=== PATIENT | female | born 1990 | race Caucasian/White ===

== ENCOUNTER 2017-03-26 11:38 | Emergency (ER) | payer BC ==
[~2017-03-26] VITALS: Ht 162.6 cm; Wt 131.5 kg
[~2017-03-26 11:38] MED LIST: AMOX500C2 PO; HYDR-3583 PO; IBP600T1 PO; KETO10TA PO; LORTAB; NITR-65 PO; ORPH100T PO; PREN1TAB39 PO; [UNRECOGNIZED DRUG - OTHER]
[2017-03-26] MEDS ORDERED: IBUPROFEN 800 MG (MOTRIN) TAB PO STA (12:31)
[2017-03-26] MEDS ORDERED: HYDROcodone/APAP 5 MG/325 MG (LORTAB) TAB PO STA (12:31)
[2017-03-26] MEDS ORDERED: TRAM50TA2 PO (12:37)
[2017-03-26] MEDS ORDERED: CEFD300C3 PO (12:37)
--- NOTE | 2017-03-26 12:39 | ED EENT ---
History of Present Illness General Chief Complaint: Oral/Throat Problems Stated Complaint: SORE THROAT/NAUSEA/TIRED Nursing Triage Note: PT STATES HAS SORETHROAT FOR A FEW DAYS. HAD FEVER LAST PM Source: patient Exam Limitations: no limitations History of Present Illness Time seen by provider: 12:20 Initial Comments 18-year-old female patient presents to the emergency department complains of sore throat beginning Monday or Monday. Reports worse today. Began having a fever last night. Does have a history of strep throat 2-3 times per year. Was told in high school she needed to have her tonsils removed, but states her parents didn't think they needed to be removed. Timing/Duration: abrupt, other (Monday or monday onset. ) Location: throat Prearrival Treatment: over the counter meds Presenting Symptoms/Injuries: sore throat, fever Modifying Factors: Worse With Other (pain worse with swallowing) Allergies and Home Medications Allergies Coded Allergies: No Known Drug Allergies (Unverified , 07/24/09) Home Medications Cefdinir 300 Mg Capsule, 300 MG PO BID, #20 Ref 0 Prescribed by: ANGELITA WISE on 03/26/17 1237 Ketorolac Tromethamine 10 Mg Tablet, 10 MG PO Q6H, #15 Prescribed by: JAIME MCKINNEY on 05/21/16 0607 Orphenadrine Citrate 100 Mg Tablet.er, 100 MG PO BID, #14 FOR MUSCLE SPASMS Prescribed by: JAIME MCKINNEY on 05/21/16 0607 Tramadol HCl 50 Mg Tablet, 50 MG PO Q4H PRN for pain, #14 Ref 0 Prescribed by: ANGELITA WISE on 03/26/17 1237 Review of Systems Constitutional: chills, fever, malaise Eyes: No Symptoms Reported Ears: Denies Pain Nose: denies congestion, denies pain Mouth: no symptoms reported Throat: see HPI, pain, swelling (tonsillar swelling), denies neck stiffness, hoarse, denies aphonia, denies muffled, painful swallowing, denies difficulty with fluids Respiratory: no symptoms reported Cardiovascular: no symptoms reported Gastrointestinal: No abdominal pain, No diarrhea, No nausea, No vomiting Musculoskeletal: no symptoms reported Skin: no symptoms reported Neurological: No Symptoms Reported All Other Systems Reviewed Negative Unless Noted: Yes (Negative excepted noted.) Past Dmgdbro-Terart-Gfoaea Hx Patient Social History Alcohol Use: Denies Use Recreational Drug Use: No Smoking Status: Former Smoker Type Used: Cigarettes Recent Foreign Travel: No Contact w/Someone Who Travel: No Recent Infectious Disease Expo: No Recent Hopitalizations: No Surgeries HX Surgeries: Yes Surgeries: Section, Gallbladder Respiratory Hx Respiratory Disorders: No Cardiovascular Hx Cardiac Disorders: No Neurological Hx Neurological Disorders: No Reproductive System Hx Reproductive Disorders: No Female Reproductive Disorders: Denies Genitourinary Hx Genitourinary Disorders: No Gastrointestinal Hx Gastrointestinal Disorders: No Musculoskeletal Hx Musculoskeletal Disorders: No Endocrine Hx Endocrine Disorders: No HEENT HX ENT Disorders: No Cancer Hx Cancer: No Psychosocial Hx Psychiatric Problems: No Integumentary HX Skin/Integumentary Disorder: No Blood Transfusions Hx Blood Disorders: No Reviewed Nursing Assessment Reviewed/Agree w Nursing PMH: Yes Family Medical History Significant Family History: No Pertinent Family Hx Physical Exam Vital Signs Vital Sign - Last 12Hours 03/26/17 11:55 Temp 100.5 Pulse 112 Resp 18 B/P (MAP) 119/79 Pulse Ox 99 General Appearance: WD/WN, no apparent distress Eyes: bilateral eye EOMI, bilateral eye PERRL, bilateral eye normal inspection Ears: bilateral ear TM normal, bilateral ear auricle normal, bilateral ear canal normal Nose: normal inspection Mouth/Throat: normal mouth inspection, No excessive drooling, tonsillar exudate , tonsillar swelling, No trismus, No uvula swelling, voice changes (hoarse voice.), other (pharyngeal erythema) Neck: full range of motion, supple, lymphadenopathy (R) (TTP), lymphadenopathy (L) (TTP) Cardiovascular: no murmur, tachycardia Respiratory: lungs clear, normal breath sounds, no respiratory distress Gastrointestinal: non tender, soft Neurologic/Psychiatric: alert, normal mood/affect, oriented x 3 Skin: normal color, warm/dry Progress/Results/Core Measures Results/Orders Lab Results Laboratory Tests Test 03/26/17 12:00 Range/Units Group A Streptococcus Screen POSITIVE H NEGATIVE My Orders Orders - ANGELITA WISE Rapid Strep A Screen (03/26/17 12:02) Hydrocodone/Apap 5/325 Tablet (Lortab 5 (03/26/17 12:31) Ibuprofen Tablet (Motrin Tablet) (03/26/17 12:31) Ceftriaxone Injection (Rocephin Injectio (03/26/17 12:45) Lidocaine 1% Injection (Xylocaine 1% Inj (03/26/17 12:45) Medications Given in ED Current Medications Medications Dose Ordered Sig/Benjamin Route Start Time Stop Time Status Last Admin Dose Admin Ceftriaxone Sodium 1,000 mg ONCE ONCE IM 03/26/17 12:45 03/26/17 12:46 DC 03/26/17 12:50 1,000 MG Lidocaine HCl 2.1 ml ONCE ONCE INJ 03/26/17 12:45 03/26/17 12:46 DC 03/26/17 12:50 2.1 ML Vital Signs/I&O Vital Sign - Last 12Hours 03/26/17 11:55 Temp 100.5 Pulse 112 Resp 18 B/P (MAP) 119/79 Pulse Ox 99 Blood Pressure Mean: 92 Departure Communication Progress Notes Patient seen and evaluated. Patient instructed to follow-up with Dr. Riggs as an outpatient for discussion of possible need of tonsillectomy. Patient to call Monday for appointment time. Impression Impression: Primary Impression: Streptococcal tonsillitis Disposition: HOME, SELF-CARE Condition: Improved Departure-Patient Inst. Decision time for Depature: 12:36 Referrals: JAYSON RIGGS MD [facility] (PCP/Family) Primary Care Physician Patient Instructions: Strep Throat (DC) Add. Discharge Instructions: All discharge instructions reviewed with patient and/or family. Voiced understanding. Medications as instructed. Tylenol Extra Strength 1000 mg by mouth every 6 hours as needed for pain or fever. Ibuprofen 800 mg by mouth every 8 hours as needed for pain or fever. Throat lozenges and sprays over-the- counter as needed. Warm saltwater gargles if needed. Soft diet. Drink plenty of fluids. Follow-up with your family practitioner for recheck if needed. Follow-up with Dr. Riggs as an outpatient for discussion of possible need for consult removal. Call Monday for appointment time. Return to the emergency department for worsened pain, fever, vomiting, difficulty swallowing, shortness of air, or any other concerns. Scripts Tramadol HCl (Tramadol HCl) 50 Mg Tablet 50 MG PO Q4H Y for pain, #14 TAB 0 Refills Prov: ANGELITA WISE 03/26/17 Cefdinir (Cefdinir) 300 Mg Capsule 300 MG PO BID, #20 CAP 0 Refills Prov: ANGELITA WISE 03/26/17 ANGELITA WISE Mar 26, 2017 12:39
[2017-03-26] MEDS ORDERED: LIDOCAINE 1% INJ 20 ML (XYLOCAINE) VIAL INJ ONE (12:45)
[2017-03-26] MEDS ORDERED: cefTRIAXone 1 GM (ROCEPHIN) VIAL IM ONE (12:45)
[2017-03-26 13:08] VITALS: BP 119/72
== END 2017-03-26 13:08 | disposition home or self-care (01) ==
LOC: EDUNIT# 11:38 → ER 11:39
DX: J03.00 Acute streptococcal tonsillitis, unspecified (principal); Z87.891 Personal history of nicotine dependence
CPT/HCPCS: 87430; 99282

== ENCOUNTER 2017-03-27 21:48 | Emergency (ER) | payer BC ==
[~2017-03-27] VITALS: Ht 162.6 cm; Wt 131.5 kg
[~2017-03-27 21:48] MED LIST changes: +CEFD300C3 PO; +TRAM50TA2 PO
--- NOTE | 2017-03-27 22:12 | ED EENT ---
History of Present Illness General Chief Complaint: Oral/Throat Problems Stated Complaint: STREP THROAT/TONCILLITIS Nursing Triage Note: SEEN IN ER YESTERDAY, POSTITIVE FOR STREP, GIVEN OMNICEF AND TRAMADOL AND TOLD TO COME BACK IF CONDITIONS WORSENED. PT STATES SHE IS HAVING TROUBLE BREATHING, ADDY WHEN LYING DOWN TO SLEEP, NOT FEELING ANY BETTER, GAGGING AND VOMITING MUCUS WHICH IS YELLOW/BROWNISH IN COLOR, THROAT STILL SORE, HARDER TO DRINK LIQUIDS TODAY THAN YESTERDAY. TRIED TO MAKE F/U AT [facility], BUT WOULD NOT SEE TIL MONDAY. Source: patient Exam Limitations: no limitations (ARIA IVEY APRN) History of Present Illness Time seen by provider: 22:11 Initial Comments To ER with a sore throat that has gotten worse since yesterday. She was seen here yesterday and had a positive rapid strep screen as her chief complaint was sore throat. She was given a shot of Rocephin and started on Omnicef but denies improvement. Still unable to eat or drink. Timing/Duration: gradual Severity: moderate Location: throat Associated Symptoms: denies symptoms (ARIA IVEY APRN) Allergies and Home Medications Allergies Coded Allergies: No Known Drug Allergies (Unverified , 07/24/09) Home Medications Cefdinir 300 Mg Capsule, 300 MG PO BID, #20 Ref 0 Prescribed by: ANGELITA WISE on 03/26/17 1237 Ketorolac Tromethamine 10 Mg Tablet, 10 MG PO Q6H, #15 Prescribed by: JAIME MCKINNEY on 05/21/16 0607 Orphenadrine Citrate 100 Mg Tablet.er, 100 MG PO BID, #14 FOR MUSCLE SPASMS Prescribed by: JAIME MCKINNEY on 05/21/16 0607 Tramadol HCl 50 Mg Tablet, 50 MG PO Q4H PRN for pain, #14 Ref 0 Prescribed by: ANGELITA WISE on 03/26/17 1237 Review of Systems Constitutional: see HPI Eyes: No Symptoms Reported Ears: No Symptoms Reported Nose: no symptoms reported Mouth: no symptoms reported Throat: see HPI (I didn't), pain, swelling Respiratory: no symptoms reported Cardiovascular: no symptoms reported Musculoskeletal: no symptoms reported Skin: no symptoms reported Neurological: No Symptoms Reported (ARIA IVEY APRN) Past Depwphv-Yywefl-Ewzood Hx Patient Social History Alcohol Use: Denies Use Recreational Drug Use: No Type Used: Cigarettes Recent Foreign Travel: No Contact w/Someone Who Travel: No Recent Infectious Disease Expo: No Recent Hopitalizations: No (ARIA IVEY APRN) Seasonal Allergies Seasonal Allergies: No (ARIA IVEY APRN) Surgeries HX Surgeries: Yes Surgeries: Section, Gallbladder (ARIA IVEY APRN) Respiratory Hx Respiratory Disorders: No (ARIA IVEY APRN) Cardiovascular Hx Cardiac Disorders: No (ARIA IVEY APRN) Neurological Hx Neurological Disorders: No (ARIA IVEY APRN) Reproductive System : No Hx Reproductive Disorders: No Female Reproductive Disorders: Denies (ARIA IVEY APRN) Genitourinary Hx Genitourinary Disorders: No (ARIA IVEY APRN) Gastrointestinal Hx Gastrointestinal Disorders: No (ARIA IVEY APRN) Musculoskeletal Hx Musculoskeletal Disorders: No (ARIA IVEY APRN) Endocrine Hx Endocrine Disorders: No (ARIA IVEY APRN) HEENT HX ENT Disorders: No (ARIA IVEY APRN) Cancer Hx Cancer: No (ARIA IVEY APRN) Psychosocial Hx Psychiatric Problems: No (ARIA IVEY APRN) Integumentary HX Skin/Integumentary Disorder: No (ARIA IVEY APRN) Blood Transfusions Hx Blood Disorders: No (ARAI IVEY APRN) Family Medical History Significant Family History: No Pertinent Family Hx (ARIA IVEY APRN) Physical Exam Vital Signs Vital Sign - Last 12Hours 03/27/17 21:54 Temp 99.3 Pulse 130 Resp 20 B/P (MAP) 140/100 O2 Delivery Room Air (RAJ AU MD) General Appearance: WD/WN, no apparent distress Eyes: bilateral eye EOMI, bilateral eye PERRL, bilateral eye normal inspection Ears: bilateral ear auricle normal, bilateral ear canal normal Nose: normal inspection, active bleeding Mouth/Throat: other (significant tonsillar erythema, tonsillar exudate and tonsils are kissing.) Neck: non-tender, full range of motion, lymphadenopathy (R), lymphadenopathy (L ) Respiratory: normal breath sounds, no respiratory distress, no accessory muscle use Neurologic/Psychiatric: alert, normal mood/affect, oriented x 3 Skin: normal color, warm/dry (ARIA IVEY APRN) Progress/Results/Core Measures Results/Orders Lab Results Laboratory Tests Test 03/27/17 22:05 Range/Units White Blood Count 20.3 H 4.3-11.0 10^3/uL Red Blood Count 4.20 L 4.35-5.85 10^6/uL Hemoglobin 12.9 11.5-16.0 G/DL Hematocrit 39 35-52 % Mean Corpuscular Volume 94 80-99 FL Mean Corpuscular Hemoglobin 31 25-34 PG Mean Corpuscular Hemoglobin Concent 33 32-36 G/DL Red Cell Distribution Width 12.9 10.0-14.5 % Platelet Count 223 130-400 10^3/uL Mean Platelet Volume 11.7 H 7.4-10.4 FL Neutrophils (%) (Auto) 85 H 42-75 % Lymphocytes (%) (Auto) 9 L 12-44 % Monocytes (%) (Auto) 6 0-12 % Eosinophils (%) (Auto) 0 0-10 % Basophils (%) (Auto) 0 0-10 % Neutrophils # (Auto) 17.2 H 1.8-7.8 X 10^3 Lymphocytes # (Auto) 1.9 1.0-4.0 X 10^3 Monocytes # (Auto) 1.1 H 0.0-1.0 X 10^3 Eosinophils # (Auto) 0.0 0.0-0.3 10^3/uL Basophils # (Auto) 0.0 0.0-0.1 10^3/uL Neutrophils % (Manual) 79 % Lymphocytes % (Manual) 19 % Monocytes % (Manual) 2 % Eosinophils % (Manual) 0 % Basophils % (Manual) 0 % Band Neutrophils 0 % Blood Morphology Comment NORMAL Sodium Level 136 135-145 MMOL/L Potassium Level 3.7 3.6-5.0 MMOL/L Chloride Level 104 98-107 MMOL/L Carbon Dioxide Level 19 L 21-32 MMOL/L Anion Gap 13 5-14 MMOL/L Blood Urea Nitrogen 8 7-18 MG/DL Creatinine 0.81 0.60-1.30 MG/DL Estimat Glomerular Filtration Rate > 60 BUN/Creatinine Ratio 10 Glucose Level 89 70-105 MG/DL Calcium Level 9.4 8.5-10.1 MG/DL (RAJ AU MD) Medications Given in ED Current Medications Medications Dose Ordered Sig/Benjamin Route Start Time Stop Time Status Last Admin Dose Admin Dexamethasone Sodium Phosphate 10 mg ONCE ONCE IV 03/27/17 22:15 03/27/17 22:16 DC 03/27/17 22:50 10 MG Iohexol 100 ml ONCE ONCE IV 03/27/17 22:30 03/27/17 22:31 DC 03/27/17 22:31 75 ML Ketorolac Tromethamine 30 mg ONCE ONCE IVP 03/27/17 22:15 03/27/17 22:16 DC 03/27/17 22:50 30 MG Penicillin G Benzathine 1,200,000 unit ONCE ONCE IM 03/27/17 22:15 03/27/17 22:16 DC 03/27/17 23:04 1,200,000 UNIT Sodium Chloride 100 ml ONCE ONCE IV 03/27/17 22:30 03/27/17 22:31 DC 03/27/17 22:31 80 ML (RAJ AU MD) Vital Signs/I&O Vital Sign - Last 12Hours 03/27/17 21:54 Temp 99.3 Pulse 130 Resp 20 B/P (MAP) 140/100 O2 Delivery Room Air (RAJ AU MD) Blood Pressure Mean: 113 Progress Note : Progress Note 0010: CT results reviewed. Patient is feeling much better currently. Was informed of the results and that this should get better but may worsen and was instructed to return for any concerns including any worsening. Discharged home with return precautions. Patient verbalize understanding instructions and agreement with plan. (RAJ AU MD) Diagnostic Imaging Diagonstic Imaging: CT Plain Films/CT/US/NM/MRI: other (soft tissue neck) Comments Enlarged and edematous palatine tonsils with no definite peritonsillar abscess. Small intratonsillar abscess is or not excluded. (RAJ AU MD) Departure Impression Impression: Primary Impression: Streptococcal sore throat Disposition: 01 HOME, SELF-CARE Condition: Stable Departure-Patient Inst. Decision time for Depature: 22:13 (ARIA IVEY APRN) Referrals: [facility] (PCP/Family) Primary Care Physician Patient Instructions: Strep Throat (DC) Add. Discharge Instructions: 1. Continue with Tylenol and Motrin for fevers and pain 2. You may return to work on 3. All discharge instructions reviewed with patient and/or family. Voiced understanding. Work/School Note: Work Release Form Date Seen in the Emergency Department: Mar 27, 2017 Return to Work: Mar 30, 2017 Restrictions: No Restrictions ARIA IVEY APRN Mar 27, 2017 22:12 RAJ AU MD Mar 28, 2017 00:17
[2017-03-27 22:13] LABS: BASOPHILS % (AUTO) 0 % (0-10); EOSINOPHILS % (AUTO) 0 % (0-10); LYMPHOCYTES # (AUTO) 1.9 X 10^3 (1.0-4.0); LYMPHOCYTES % (AUTO) 9 % (12-44); MEAN CORPUSCULAR HEMOGLOBIN 31 PG (25-34); MEAN CORPUSCULAR HGB CONC 33 G/DL (32-36); MEAN CORPUSCULAR VOLUME 94 FL (80-99); MEAN PLATELET VOLUME 11.7 FL (7.4-10.4); MONOCYTES # (AUTO) 1.1 X 10^3 (0.0-1.0); MONOCYTES % (AUTO) 6 % (0-12); NEUTROPHILS # (AUTO) 17.2 X 10^3 (1.8-7.8); NEUTROPHILS % (AUTO) 85 % (42-75); PLATELET COUNT 223 10^3/uL (130-400); RED CELL DISTRIBUTION WIDTH 12.9 % (10.0-14.5); WHITE BLOOD COUNT 20.3 10^3/uL (4.3-11.0)
[2017-03-27] MEDS ORDERED: NS IV 1000 ML 1,000 ML IV SCH (22:15)
[2017-03-27] MEDS ORDERED: KETOROLAC 30 MG/ML VIAL IVP ONE (22:15)
[2017-03-27] MEDS ORDERED: DEXAMETHASONE PF 10 MG/ML (DECADRON) VIAL IV ONE (22:15)
[2017-03-27] MEDS ORDERED: PEN G BENZ (BICILLIN LA) 1.2 M UN/2 ML SYR IM ONE (22:15)
[2017-03-27 22:28] LABS: ANION GAP 13 MMOL/L (5-14); BLOOD UREA NITROGEN 8 MG/DL (7-18); BUN/CREATININE RATIO 10; CALCIUM 9.4 MG/DL (8.5-10.1); CARBON DIOXIDE 19 MMOL/L (21-32); CHLORIDE 104 MMOL/L (98-107); CREATININE SERUM 0.81 MG/DL (0.60-1.30); GFR ESTIMATED > 60; GLUCOSE 89 MG/DL (70-105); POTASSIUM 3.7 MMOL/L (3.6-5.0); SODIUM 136 MMOL/L (135-145)
[2017-03-27] MEDS ORDERED: NS 100 ML (IVPB) BAG IV ONE (22:30)
[2017-03-27] MEDS ORDERED: IOHEXOL 350 MG/ML 100 ML (OMNIPAQUE 350) VIAL IV ONE (22:30)
[2017-03-27 22:31] LABS: BAND NEUTROPHILS 0 %; BASOPHILS % (MANUAL) 0 %; EOSINOPHILS % (MANUAL) 0 %; LYMPHOCYTES % (MANUAL) 19 %; NEUTROPHILS % (MANUAL) 79 %
[2017-03-28 00:15] VITALS: BP 144/89
--- NOTE | 2017-03-28 06:32 | Diagnostic Imaging Report ---
PROCEDURE: CT neck soft tissue with contrast. TECHNIQUE: Multiple contiguous axial images were obtained through the neck after the administration of contrast. INDICATION: Pharyngitis. FINDINGS: There is significant enlargement of the palatine tonsils with mild heterogeneous density. This could be due to developing internal phlegmon or abscesses. No defined fluid collection is seen at this time. The airway is patent without epiglottis enlargement. There are enlarged lymph nodes along the deep cervical chains, bilaterally. Largest in the left retromandibular region reaches 1.9 x 1.6 cm with right retromandibular node reaching 1.5 x 1.3 cm. Vessels appear patent. There is no evidence of salivary gland or thyroid gland abnormality. IMPRESSION: Findings are most consistent with tonsillitis. Possible developing phlegmon or abscesses within the palatine tonsils cannot be fully excluded, however, no organized fluid collection is seen. There is generally symmetric bilateral cervical adenopathy which is likely reactive in nature. Dictated by: Dictated on workstation # [id number]
== END 2017-03-28 00:15 | disposition home or self-care (01) ==
LOC: EDUNIT# 21:48 → ER 21:50
DX: J02.0 Streptococcal pharyngitis (principal); F17.210 Nicotine dependence, cigarettes, uncomplicated
CPT/HCPCS: 36415; 70491; 80048; 85007; 85027

== ENCOUNTER 2018-03-10 18:57 | Emergency (ER) | payer BC ==
[~2018-03-10] VITALS: Ht 162.6 cm; Wt 131.5 kg
--- NOTE | 2018-03-10 19:18 | ED EENT ---
History of Present Illness General Stated Complaint: ABSCESS TOOTH Source: patient, family Exam Limitations: no limitations History of Present Illness Date Seen by Provider: March 10, 2018 Time Seen by Provider: 19:05 Initial Comments The patient presents to ER by private conveyance with chief complaint that for the past month or 2 she's been having some left lower molar pain with an abscess. She was treated with amoxicillin initially and had plans to see her dentist to have it taken care of with her dentist . She establish care with another dentist and unable to get in to see her till March. She is a course of clindamycin for 5 days and that helped some but the pain came back. She's not having any discharge, fevers, chills, nausea, vomiting. She was restarted on clindamycin for 10 days 2 days ago and is still having a lot of pain. She's used for ibuprofen today and 3 extra strength Tylenol today. She says they're not touching her pain. She has not used Orajel or any topical medicine. Allergies and Home Medications Allergies Coded Allergies: No Known Drug Allergies (Unverified , 07/24/09) Patient Home Medication List Home Medication List Reviewed: Yes Review of Systems Constitutional: No chills, No diaphoresis Eyes: Denies Blindness, Denies Blurred Vision Ears: Denies Dizziness, Denies Pain Nose: denies clots, denies congestion Mouth: denies clots, denies loose teeth; pain; denies swelling, denies bloody discharge, denies clear discharge, denies purulent discharge, denies previous injury Throat: denies pain, denies swelling, denies discharge Respiratory: No cough, No short of breath Cardiovascular: No chest pain, No edema Gastrointestinal: No constipation, No diarrhea, No nausea Past Qtrwqpq-Zdujwm-Fgurnu Hx Patient Social History Alcohol Use: Denies Use Recreational Drug Use: No Smoking Status: Former Smoker Type Used: Cigarettes Former Smoker, Quit: Mar 16, 2016 Recent Foreign Travel: No Contact w/Someone Who Travel: No Recent Hopitalizations: No Seasonal Allergies Seasonal Allergies: No Past Medical History Surgeries: Yes Section, Gallbladder Respiratory: No Cardiac: No Neurological: No Reproductive Disorders: No Female Reproductive Disorders: Denies Gastrointestinal: No Musculoskeletal: No Endocrine: No Cancer: No Psychosocial: No Integumentary: No Blood Disorders: No Family Medical History No Pertinent Family Hx Physical Exam Vital Signs Vital Signs - First Documented 03/10/18 19:05 Temp 97.9 Pulse 80 Resp 20 B/P (MAP) 123/88 (100) Pulse Ox 97 O2 Delivery Room Air General Appearance: WD/WN, no apparent distress Eyes: bilateral eye normal inspection, bilateral eye PERRL, bilateral eye EOMI Ears: bilateral ear auricle normal, bilateral ear canal normal, bilateral ear TM normal Nose: normal inspection, active bleeding, discharge Mouth/Throat: normal mouth inspection, pharynx normal, dental tenderness (left lower molar second from the rear), other (dental caries. No gingival swelling or palpable abscess or area of fluctuance.) Neck: non-tender, full range of motion, supple, normal inspection Cardiovascular: normal peripheral pulses, regular rate, rhythm Respiratory: no respiratory distress, no accessory muscle use Neurologic/Psychiatric: alert, normal mood/affect, oriented x 3 Skin: normal color, warm/dry Progress/Results/Core Measures Results/Orders My Orders Orders - SUDEEP CARRASCO Lidocaine 2% Viscous 15 Ml (Xylocaine Vi (03/10/18 19:15) Vital Signs/I&O 03/10/18 19:05 Temp 97.9 Pulse 80 Resp 20 B/P (MAP) 123/88 (100) Pulse Ox 97 O2 Delivery Room Air Progress Progress Note : Time: 19:15 Progress Note Counseled that until the patient is had dental procedure to rectify her caries she will continue to have pain. We have counseled topicals and we'll give her some viscous lidocaine. We have offered her an alveolar nerve block which she has declined. We have counseled her on appropriate use of NSAIDs and Tylenol. Departure Impression Primary Impression: Pain due to dental caries Disposition: 01 HOME, SELF-CARE Condition: Stable Departure-Patient Inst. Decision time for Depature: 19:16 Referrals: [facility] (PCP/Family) Primary Care Physician Patient Instructions: Dental Pain (DC) Add. Discharge Instructions: Use the Tylenol 1000 mg every 8 hours as needed for pain. You can use an NSAID of your choice such as ibuprofen 800 mg every 8 hours or for convenience sake you can use naproxen 2 tablets twice a day for the same amount of coverage. You can use heating pads and distraction. You can use topical gel such as Orajel over the teeth that hurt to help with the pain. You can use the viscous lidocaine impregnated gauze and bite down gently over the tooth that hurts and hold there for an hour to 2. Keep your follow-up appointment with the dentist. Continue your clindamycin as prescribed. Copy Copies To 1: ESHA JUNIOR TITUS J March 10, 2018 19:18
[2018-03-10] MEDS ORDERED: CLIN150C17 (19:19)
[2018-03-10 19:26] VITALS: BP 123/88
[2018-03-10] MEDS: LIDOCAINE 2% VISCOUS 15 ML UDC PO ONE (19:26)
== END 2018-03-10 19:26 | disposition home or self-care (01) ==
LOC: EDUNIT# 18:57 → ER 18:59
DX: K02.9 Dental caries, unspecified (principal); Z87.59 Personal history of other complications of pregnancy, childbirth and the puerperium; Z87.891 Personal history of nicotine dependence
CPT/HCPCS: 99283

== ENCOUNTER 2020-11-08 14:58 | Emergency (ER) | payer BC, OTHER ==
[~2020-11-08] VITALS: Ht 162.5 cm; Wt 145.1 kg
[~2020-11-08 14:58] MED LIST changes: +CLIN150C18; -TRAM50TA2 PO; +TRM50T PO
--- NOTE | 2020-11-08 15:32 | ED Respiratory ---
General Chief Complaint: Respiratory Problems Stated Complaint: COVID POSITIVE/CP/O2 LEVEL 90 History of Present Illness Date Seen by Provider: Nov 08, 2020 Time Seen by Provider: 15:20 Initial Comments Patient is a 30-year-old female who presents to the emergency department today with a chief complaint of shortness of breath, congestion, body aches, cough, chest tightness. Patient states that she started having symptoms of coronavirus last Monday and then tested positive on . Patient states that her fever has been "all over the place". Her last dose of ibuprofen was approximately 1 hour prior to arrival. Patient states that she was spot checking her oxygen saturation today and it was hanging out around 90%. Patient decided to come into the emergency room when she experienced some chest tightness to go along with that. Patient states she has had decreased appetite over the course of the last 3 or 4 days. She has urinated today x2. Patient denies any loss of taste or smell. As stated she has some nasal congestion without rhinorrhea or sore throat. Patient states she has been nauseated but not had any vomiting. She denies diarrhea. Her has also had coronavirus over the course of the last week. All other review of systems reviewed and negative except as stated above. Timing/Duration: week Severity: moderate Prior Episodes/Possible Cause: illness exposure Modifying Factors: Worse With Coughing Associated Symptoms: chest pain/soreness ("Chest tightness"), cough, fever/chills, headache, muscle aches, nasal congestion, shortness of breath Allergies and Home Medications Allergies Coded Allergies: No Known Drug Allergies (Unverified , 07/24/09) Patient Home Medication List Home Medication List Reviewed: Yes Review of Systems Review of Systems Constitutional: see HPI EENTM: nose congestion Respiratory: cough, short of breath Cardiovascular: chest pain ("Tightness") Gastrointestinal: no symptoms reported, nausea Genitourinary: no symptoms reported Musculoskeletal: muscle pain Skin: no symptoms reported Psychiatric/Neurological: No Symptoms Reported All Other Systems Reviewed Negative Unless Noted: Yes Past Zkdziki-Nlbwzk-Ccmyra Hx Patient Social History Alcohol Use: Denies Use Type Used: Cigarettes Former Smoker, Quit: Apr 15, 2020 2nd Hand Smoke Exposure: Yes Recent Hopitalizations: No Seasonal Allergies Seasonal Allergies: No Past Medical History Surgeries: Yes Section, Gallbladder Respiratory: No Cardiac: No Neurological: No Reproductive Disorders: No Female Reproductive Disorders: Denies Gastrointestinal: No Musculoskeletal: No Endocrine: No Cancer: No Psychosocial: No Integumentary: No Blood Disorders: No Family Medical History No Pertinent Family Hx Physical Exam Vital Signs - First Documented 11/08/20 15:15 Temp 37.8 Pulse 125 Resp 24 B/P (MAP) 106/78 (87) Pulse Ox 96 O2 Delivery Room Air Capillary Refill : Height: 5'4.00" Weight: 290lbs. oz. 131.205674yu; BMI Method:Stated General Appearance: WD/WN, no apparent distress Eyes: Bilateral Eye Normal Inspection, Bilateral Eye PERRL, Bilateral Eye EOMI HEENT: PERRL/EOMI, normal ENT inspection, TMs normal, pharynx normal Neck: non-tender, full range of motion, supple, normal inspection Respiratory: lungs clear, normal breath sounds, no respiratory distress, no accessory muscle use, other (Oxygen saturation 96% initially, dropped to 93% that she was talking to me) Cardiovascular: regular rate, rhythm, tachycardia (125) Gastrointestinal: non tender, soft Extremities: non-tender, normal inspection, no pedal edema Neurologic/Psychiatric: alert, normal mood/affect, oriented x 3 Skin: normal color, warm/dry Focused Exam Lactate Level 11/08/20 15:35: Lactic Acid Level 0.90 Lactic Acid Level Laboratory Tests Test 11/08/20 15:35 Lactic Acid Level 0.90 MMOL/L (0.50-2.00) Progress/Results/Core Measures Suspected Sepsis SIRS Temperature: Pulse: Respiratory Rate: Laboratory Tests 11/08/20 15:35: White Blood Count 2.5L Blood Pressure / Mean: 11/08/20 15:35: Lactic Acid Level 0.90 Laboratory Tests 11/08/20 15:35: Creatinine 0.93, Platelet Count 146, Total Bilirubin 0.3 Results/Orders Lab Results Laboratory Tests Test 11/08/20 15:35 Range/Units White Blood Count 2.5 L 4.3-11.0 10^3/uL Red Blood Count 4.75 3.80-5.11 10^6/uL Hemoglobin 14.3 11.5-16.0 g/dL Hematocrit 44 35-52 % Mean Corpuscular Volume 92 80-99 fL Mean Corpuscular Hemoglobin 30 25-34 pg Mean Corpuscular Hemoglobin Concent 33 32-36 g/dL Red Cell Distribution Width 12.8 10.0-14.5 % Platelet Count 146 130-400 10^3/uL Mean Platelet Volume 11.7 9.0-12.2 fL Immature Granulocyte % (Auto) 0 % Neutrophils (%) (Auto) 62 42-75 % Lymphocytes (%) (Auto) 31 12-44 % Monocytes (%) (Auto) 7 0-12 % Eosinophils (%) (Auto) 0 0-10 % Basophils (%) (Auto) 0 0-10 % Neutrophils # (Auto) 1.5 L 1.8-7.8 10^3/uL Lymphocytes # (Auto) 0.8 L 1.0-4.0 10^3/uL Monocytes # (Auto) 0.2 0.0-1.0 10^3/uL Eosinophils # (Auto) 0.0 0.0-0.3 10^3/uL Basophils # (Auto) 0.0 0.0-0.1 10^3/uL Immature Granulocyte # (Auto) 0.0 0.0-0.1 10^3/uL D-Dimer 0.85 H 0.00-0.49 UG/ML Sodium Level 134 L 135-145 MMOL/L Potassium Level 3.9 3.6-5.0 MMOL/L Chloride Level 103 98-107 MMOL/L Carbon Dioxide Level 20 L 21-32 MMOL/L Anion Gap 11 5-14 MMOL/L Blood Urea Nitrogen 12 7-18 MG/DL Creatinine 0.93 0.60-1.30 MG/DL Estimat Glomerular Filtration Rate > 60 BUN/Creatinine Ratio 13 Glucose Level 91 70-105 MG/DL Lactic Acid Level 0.90 0.50-2.00 MMOL/L Calcium Level 8.7 8.5-10.1 MG/DL Corrected Calcium 8.7 8.5-10.1 MG/DL Total Bilirubin 0.3 0.1-1.0 MG/DL Aspartate Amino Transf (AST/SGOT) 29 5-34 U/L Alanine Aminotransferase (ALT/SGPT) 29 0-55 U/L Alkaline Phosphatase 95 40-136 U/L C-Reactive Protein High Sensitivity 2.39 H 0.00-0.50 MG/DL Total Protein 7.7 6.4-8.2 GM/DL Albumin 4.0 3.2-4.5 GM/DL My Orders Orders - TONI BISWAS MD Cbc With Automated Diff (11/08/20 15:32) Comprehensive Metabolic Panel (11/08/20 15:32) Hs C Reactive Protein (11/08/20 15:32) Lactic Acid Analyzer (11/08/20 15:32) Fibrin Degradation Products (11/08/20 15:32) Chest 1 View, Ap/Pa Only (11/08/20 15:32) Ed Iv/Invasive Line Start (11/08/20 15:33) Lactated Ringers (Lr 1000 Ml Iv Solution (11/08/20 15:45) Ct Angio Chest W (11/08/20 16:09) Iohexol Injection (Omnipaque 350 Mg/Ml 1 (11/08/20 16:15) Received Contrast (Hold Metformin- Contr (11/08/20 16:15) Ns (Ivpb) (Sodium Chloride 0.9% Ivpb Bag (11/08/20 16:15) Vital Signs/I&O 11/08/20 15:15 Temp 37.8 Pulse 125 Resp 24 B/P (MAP) 106/78 (87) Pulse Ox 96 O2 Delivery Room Air Capillary Refill : Progress Note : Time: 15:30 Progress Note 30-year-old female presents to the emergency room with a chief complaint of shortness of breath and cough, Covid positive. Evaluation today includes a physical exam, chest x-ray, CBC, chemistry, D-dimer, CRP. Clinically patient looks well however secondary to the course of illness being on day 6, reportedly low oxygen saturations at home she has a high likelihood in my estimation of decompensation. 1728 Reevaluated patient, she looks good. Heart rate is down to the upper 90s. Oxygen saturations are 97% on room air. Patient is exhibiting no signs of respiratory distress. She does have bilateral patchy infiltrates consistent with Covid pneumonia. Patient is going to be given Decadron 6 mg IV and placed on prednisone 60 mg for the next 5 days. She is given good return precautions she is instructed to spot check her pulse ox at home over the course of the next several days and return to the emergency room if she has consistent readings below 90. Patient verbalizes understanding. All questions are sought and answered. Patient is stable for discharge. Diagnostic Imaging Diagonstic Imaging: Xray, CT Plain Films/CT/US/NM/MRI: chest [facility] [place], [place] NAME: IVETTE PERDUE [facility] REC#: [id number] PT STATUS: REG ER : 1990 PHYSICIAN: TONI BISWAS MD ADMIT DATE: 11/08/20/ER Signed Date of Exam:11/08/20 CHEST 1 VIEW, AP/PA ONLY Chest 1 view, AP/PA only. Indication: Shortness of breath and cough. Comparison: 05/21/2016. Findings: Patchy ill-defined opacities are present in the bilateral lung bases. No pleural effusion or pneumothorax. Normal cardiomediastinal silhouette. Impression: Patchy basilar pulmonary opacities may relate to Covid 19 pneumonia with history of recent Covid diagnosis. Dictated by: Dictated on workstation # [id number] Dict: 11/08/20 1558 Trans: 11/08/[address] [facility] [id number] Interpreted by: ISIDRO MOTT MD Electronically signed by: ISIDRO MOTT MD 11/08/20 160[address] [facility] [place] NAME: IVETTE PERDUE [facility] REC#: [id number] PT STATUS: REG ER : 1990 PHYSICIAN: TONI BISWAS MD ADMIT DATE: 11/08/20/ER Draft Date of Exam:11/08/20 CT ANGIO CHEST W PROCEDURE: CT angiography of the chest with contrast. TECHNIQUE: Multiple contiguous axial images were obtained through the chest after uneventful bolus administration of intravenous contrast. 3D reconstructed CTA MIP acquisitions were also performed. Auto Exposure Controls were utilized during the CT exam to meet ALARA standards for radiation dose reduction. INDICATION: Covid with shortness of breath with exertion and nausea. Fever. FINDINGS: There are patchy bilateral groundglass infiltrates compatible with Covid pneumonia. There is no pleural or pericardial fluid. There is no pneumothorax. Thoracic aorta is normal in caliber without evidence of dissection. There is some bilateral peribronchial thickening likely reflecting a component of bronchitis. There are no filling defects within the pulmonary arteries to suggest pulmonary embolism. The visualized intra-abdominal structures are unremarkable. The osseous structures are unremarkable. IMPRESSION: 1. Scattered bilateral groundglass infiltrates highly suspect for Covid pneumonia. Additionally, there is some bilateral peribronchial thickening possibly reflecting some superimposed bronchitis. 2. No evidence of aortic aneurysm or dissection. 3. No evidence of pulmonary embolism. Dictated on workstation # [id number] Dict: 11/08/20 1643 Trans: 11/08/[address] [facility] [id number] Interpreted by: RIVKA RIVERS MD Electronically signed by: Departure Impression Primary Impression: Pneumonia due to COVID-19 virus Disposition: HOME, SELF-CARE Condition: Stable Departure-Patient Inst. Decision time for Depature: 17:31 Referrals: [facility] [place] (PCP/Family) Primary Care Physician Patient Instructions: Coronavirus Disease 2019 (COVID-19) ED Add. Discharge Instructions: Drink plenty of fluids to stay well-hydrated. Continue to check your pulse ox at home on a daily basis. Come back to the emergency department if you have readings consistently under 90%. Please take the oral prednisone I have prescribed you for the next 6 days. Follow-up with your primary care physician. Scripts Prednisone (Prednisone) 20 Mg Tab 40 MG PO DAILY for 5 Days, #10 TAB 0 Refills Prov: TONI BISWAS MD 11/08/20 TONI BISWAS MD Nov 08, 2020 15:32
[2020-11-08] MEDS ORDERED: LACTATED RINGERS 1,000 ML IV SCH (15:45)
[2020-11-08 15:48] LABS: BASOPHILS % (AUTO) 0 % (0-10); EOSINOPHILS % (AUTO) 0 % (0-10); HEMATOCRIT 44 % (35-52); HEMOGLOBIN 14.3 g/dL (11.5-16.0); LYMPHOCYTES # (AUTO) 0.8 10^3/uL (1.0-4.0); LYMPHOCYTES % (AUTO) 31 % (12-44); MEAN CORPUSCULAR HEMOGLOBIN 30 pg (25-34); MEAN CORPUSCULAR HGB CONC 33 g/dL (32-36); MEAN CORPUSCULAR VOLUME 92 fL (80-99); MEAN PLATELET VOLUME 11.7 fL (9.0-12.2); MONOCYTES # (AUTO) 0.2 10^3/uL (0.0-1.0); MONOCYTES % (AUTO) 7 % (0-12); NEUTROPHILS # (AUTO) 1.5 10^3/uL (1.8-7.8); NEUTROPHILS % (AUTO) 62 % (42-75); PLATELET COUNT 146 10^3/uL (130-400); WHITE BLOOD COUNT 2.5 10^3/uL (4.3-11.0)
[2020-11-08 15:58] LABS: CHLORIDE 103 MMOL/L (98-107); POTASSIUM 3.9 MMOL/L (3.6-5.0); SODIUM 134 MMOL/L (135-145)
[2020-11-08 15:59] LABS: CALCIUM 8.7 MG/DL (8.5-10.1)
[2020-11-08 16:00] LABS: GLUCOSE 91 MG/DL (70-105)
[2020-11-08 16:01] LABS: TOTAL PROTEIN 7.7 GM/DL (6.4-8.2)
[2020-11-08 16:02] LABS: BILIRUBIN,TOTAL 0.3 MG/DL (0.1-1.0); CARBON DIOXIDE 20 MMOL/L (21-32)
--- NOTE | 2020-11-08 16:03 | Diagnostic Imaging Report ---
Chest 1 view, AP/PA only. Indication: Shortness of breath and cough. Comparison: 05/21/2016. Findings: Patchy ill-defined opacities are present in the bilateral lung bases. No pleural effusion or pneumothorax. Normal cardiomediastinal silhouette. Impression: Patchy basilar pulmonary opacities may relate to Covid 19 pneumonia with history of recent Covid diagnosis. Dictated by: Dictated on workstation # [id number]
[2020-11-08 16:04] LABS: ALKALINE PHOSPHATASE 95 U/L (40-136); CREATININE SERUM 0.93 MG/DL (0.60-1.30); GFR ESTIMATED > 60
[2020-11-08 16:05] LABS: BUN/CREATININE RATIO 13
[2020-11-08 16:07] LABS: ALANINE AMINOTRANSFERASE 29 U/L (0-55)
[2020-11-08] MEDS ORDERED: IOHEXOL 350 MG/ML 100 ML (OMNIPAQUE 350) VIAL IV ONE (16:15)
[2020-11-08] MEDS ORDERED: HOLD METFORMIN - RECEIVED CONTRAST 20 ML VIAL IV SCH (16:15)
[2020-11-08] MEDS ORDERED: NS 100 ML (IVPB) BAG IV ONE (16:15)
--- NOTE | 2020-11-08 17:04 | Diagnostic Imaging Report ---
PROCEDURE: CT angiography of the chest with contrast. TECHNIQUE: Multiple contiguous axial images were obtained through the chest after uneventful bolus administration of intravenous contrast. 3D reconstructed CTA MIP acquisitions were also performed. Auto Exposure Controls were utilized during the CT exam to meet ALARA standards for radiation dose reduction. INDICATION: Covid with shortness of breath with exertion and nausea. Fever. FINDINGS: There are patchy bilateral groundglass infiltrates compatible with Covid pneumonia. There is no pleural or pericardial fluid. There is no pneumothorax. Thoracic aorta is normal in caliber without evidence of dissection. There is some bilateral peribronchial thickening likely reflecting a component of bronchitis. There are no filling defects within the pulmonary arteries to suggest pulmonary embolism. The visualized intra-abdominal structures are unremarkable. The osseous structures are unremarkable. IMPRESSION: 1. Scattered bilateral groundglass infiltrates highly suspect for Covid pneumonia. Additionally, there is some bilateral peribronchial thickening possibly reflecting some superimposed bronchitis. 2. No evidence of aortic aneurysm or dissection. 3. No evidence of pulmonary embolism. Dictated by: Dictated on workstation # [id number]
[2020-11-08] MEDS ORDERED: PRD20T PO (17:34)
[2020-11-08 17:54] VITALS: BP 115/93
== END 2020-11-08 17:56 | disposition home or self-care (01) ==
LOC: EDUNIT# 14:58 → ER 15:00
DX: U07.1 COVID-19 (principal); J12.82 Pneumonia due to coronavirus disease 2019; Z87.891 Personal history of nicotine dependence
CPT/HCPCS: 36415; 71045; 71275; 80053; 83605; 85025; 85379; 86141